=== PATIENT | female | born 1965 | race Caucasian/White ===

== ENCOUNTER 2016-12-20 14:14 | Emergency (ER) | payer BC ==
[~2016-12-20] VITALS: Ht 167.6 cm; Wt 121.0 kg
[~2016-12-20 14:14] MED LIST: ATEN100T PO; ATOR10TA65 PO; GLYB1TAB2 PO; LEVO500V2 PO
[2016-12-20 14:20] VITALS: Ht 167.6 cm; Wt 121.0 kg
[2016-12-20 14:53] VITALS: BP 130/75; PULSE 72; RESP 17
[2016-12-20] MEDS ORDERED: ATEN50TA PO (15:05)
[2016-12-20] MEDS ORDERED: LEVO75TA5 PO (15:05)
[2016-12-20] MEDS ORDERED: ATOR20TA38 PO (15:05)
[2016-12-20] MEDS ORDERED: VALS1TAB82 PO (15:06)
[2016-12-20] MEDS ORDERED: GLYB1TAB3 PO (15:12)
[2016-12-20] MEDS ORDERED: GLYBURIDE/METFORMIN PO (15:17)
[2016-12-20 15:34] LABS: BASOPHILS % 0.4 % (0.0-2.0); EOSINOPHILS # 0.1 10^3/ul (0.0-0.5); HEMATOCRIT 38.5 % (37.0-47.0); HEMOGLOBIN 12.2 g/dl (12.0-16.0); LYMPHOCYTES # 2.2 10^3/ul (0.8-2.9); LYMPHOCYTES % 21.2 % (15.0-51.0); MEAN CORPUSCULAR HEMOGLOBIN 24.8 pg (29.0-33.0); MEAN CORPUSCULAR HGB CONC 31.7 g/dl (32.0-37.0); MEAN CORPUSCULAR VOLUME 78.3 fl (82.0-101.0); MEAN PLATELET VOLUME 10.3 fl (7.4-10.4); MONOCYTE # 0.7 10^3/ul (0.3-0.9); MONOCYTES % 6.8 % (0.0-11.0); NEUTROPHILS % 70.3 % (39.0-77.0); PLATELET COUNT 368 10^3/UL (140-415); RED BLOOD COUNT 4.92 10^6/ul (4.20-5.40); RED CELL DISTRIBUTION WIDTH 15.6 % (11.5-14.5); WHITE BLOOD COUNT 10.4 10^3/ul (4.8-10.8)
--- NOTE | 2016-12-20 15:34 | RADRPT ---
PROCEDURE: XR Chest. CLINICAL INDICATION: Chest Pain. TECHNIQUE: Single frontal view of the chest was obtained. COMPARISON: Chest x-ray from 04/27/2013 FINDINGS: There is stable mild cardiomegaly with mild pulmonary vascular congestion. No definite focal infiltrates are identified. There is no significant pleural effusion or pneumothorax. IMPRESSION: Mild cardiomegaly with mild pulmonary vascular congestion. No definite focal infiltrates or effusions. RPTAT: EE Physician Patrice Date Time Electronically viewed and signed by John Garza Physician on 12/20/2016 15:33 RA/
[2016-12-20 15:53] LABS: ANION GAP 14 (8-16); BLOOD UREA NITROGEN 15 mg/dl (7-20); CALCIUM 9.8 mg/dl (8.4-10.2); CARBON DIOXIDE 28 mmol/L (21-31); CHLORIDE 101 mmol/L (97-110); CREATININE 0.72 mg/dl (0.44-1.00); GLUCOSE 221 mg/dl (70-220); POTASSIUM 4.1 mmol/L (3.5-5.1); SODIUM 139 mmol/L (135-144)
[2016-12-20 16:08] LABS: TROPONIN-I < 0.012 ng/ml (0.00-0.12)
--- NOTE | 2016-12-20 16:54 | ERD ---
ER Documentation Chief Complaint Date/Time DATE: 12/20/16 TIME: 16:53 Chief Complaint dizziness and palpitations; chest tightness; left arm pain x 3 days; HPI This is a 51-year-old female who presents to the emergency room for evaluation of dizziness and chest tightness. The patient also has a complaint of mild nausea. She states that her symptoms have been present for 3 days duration is been constant. Her dizziness and lightheadedness is worse with a rapid change in position she describes as a room spinning sensation. The patient came to the ER for evaluation of her symptoms. ROS All systems reviewed and are negative except as per history of present illness. Medications Home Meds Reported Medications [Glyburide/Metformin] No Conflict Check, 1 TAB PO BID TAKE 2.5-500MG BID 12/20/16 Valsartan-Hydrochlorothiazide (Valsartan-HCTZ) 320-25 Mg Tablet, 1 TAB PO DAILY , #30 TAB 12/20/16 Atorvastatin Calcium* (Atorvastatin Calcium*) 20 Mg Tablet, 20 MG PO QHS, #30 TAB 12/20/16 Levothyroxine Sodium* (Levothyroxine Sodium*) 75 Mcg Tablet, 75 MCG PO BEFORE BREAKFAST, #30 TAB 12/20/16 Atenolol* (Atenolol*) 50 Mg Tablet, 50 MG PO DAILY, #30 TAB 12/20/16 Discontinued Reported Medications Glyburide/Metformin HCl (Glucovance 5-500 mg Tablet) 1 Each Tablet, 1 EACH PO BID, TAB 12/20/16 Glyburide, Micro-Metformin Hcl (Glyburide-Metformin) 1 Tab Tablet, 1 TAB PO BID 04/25/13 Levothyroxine Sodium* (Levothyroxine* INJ) 500 Mcg Soln, 75 MCG PO DAILY 04/25/13 Atorvastatin Calcium (Atorvastatin Calcium) 10 Mg Tab, MG PO HS 04/25/13 Atenolol* (Atenolol*) 100 Mg Tablet, 100 MG PO DAILY 04/25/13 Allergies Allergies: Coded Allergies: No Known Allergy (Unverified , 12/20/16) PMhx/Soc History of Surgery: Yes (RIGHT HAND [id number], 2007) Anesthesia Reaction: No Hx Neurological Disorder: No Hx Respiratory Disorders: No Hx Cardiac Disorders: Yes (HYPERTENSION, CHOLESTEROL ) Hx Psychiatric Problems: No Hx Miscellaneous Medical Probl: Yes (DM) Hx Alcohol Use: Yes (BEER DAILY) Hx Substance Use: No Hx Tobacco Use: Yes Smoking Status: Current every day smoker Physical Exam Vitals Vital Signs Date Time Temp Pulse Resp B/P Pulse Ox O2 Delivery O2 Flow Rate FiO2 12/20/16 14:53 72 17 130/75 100 Room Air 12/20/16 14:20 98.0 76 18 154/65 98 Physical Exam INITIAL VITAL SIGNS: Reviewed by me GENERAL: The patient is well developed and appropriate for usual state of health in no apparent distress HEENT: Pupils equal, round, and reactive to light. EOMI. There is no scleral icterus. NECK: C-spine is soft and supple, there is no meningismus. There is no cervical lymphadenopathy. LUNGS: Clear to auscultation bilaterally. There are no rales, wheezes or rhonchi. HEART: Regular rate and rhythm, no murmurs, clicks, rubs or gallops. ABDOMEN: Soft, non-tender, non-distended. There are bowel sounds in all four quadrants. No rebound or guarding. EXTREMITIES: There is no peripheral cyanosis or edema. No focal swelling or erythema. NEUROLOGICAL: The patient moves all four extremities with 5/5 strength. Cranial nerves II - XII are intact. Normal gait. Alert and oriented SKIN: There is no apparent rash or petechiae. HEME/LYMPHATIC: There is no evidence of excessive bruising or lymphedema. PSYCHIATRIC: The patient does not appear anxious or depressed. Result Diagram: 12/20/16 1515 12/20/16 1515 Results 24 hrs Laboratory Tests Test 12/20/16 15:15 White Blood Count 10.410^3/ul Red Blood Count 4.9210^6/ul Hemoglobin 12.2g/dl Hematocrit 38.5% Mean Corpuscular Volume 78.3fl Mean Corpuscular Hemoglobin 24.8pg Mean Corpuscular Hemoglobin Concent 31.7g/dl Red Cell Distribution Width 15.6% Platelet Count 82364^3/UL Mean Platelet Volume 10.3fl Neutrophils % 70.3% Lymphocytes % 21.2% Monocytes % 6.8% Eosinophils % 1.0% Basophils % 0.4% Nucleated Red Blood Cells % 0.0/100WBC Neutrophils # (Manual) 7.310^3/ul Lymphocytes # 2.210^3/ul Monocytes # 0.710^3/ul Eosinophils # 0.110^3/ul Basophils # 0.010^3/ul Nucleated Red Blood Cells # 0.010^3/ul Sodium Level 139mmol/L Potassium Level 4.1mmol/L Chloride Level 101mmol/L Carbon Dioxide Level 28mmol/L Anion Gap 14 Blood Urea Nitrogen 15mg/dl Creatinine 0.72mg/dl Glucose Level 221mg/dl Calcium Level 9.8mg/dl Troponin I < 0.012ng/ml Procedures/MDM EKG: Rate/Rhythm: [Normal Sinus Rhythm] QRS, ST, T-waves: [No changes consistent w/ acute ischemia] Impression: [No evidence of ischemia or arrhythmia] Chest X-ray 1V Interpreted by me: Soft Tissue: No acute abnormalities Bones: No acute abnormalities Mediastinum/Cardiac Silhouette/Lungs: [No acute abnormalities] This 51-year-old female presents to the ER for evaluation of dizziness. The patient on a cardiac workup in the ER including an EKG was nonischemic, troponin negative, chest x-ray is clear. She was given meclizine in the ER. She is hemodynamically stable at this time will be discharged home with a prescription for meclizine for BPPV. She was also advised to follow with primary care physician as an outpatient for outpatient stress test. She did verbalize understanding. Departure Diagnosis: Primary Impression: Dizziness Additional Impression: Chest pain Condition: Stable PRCEIOUS MARTINEZ DO Dec 20, 2016 16:54
[2016-12-20] MEDS ORDERED: MECL12.574 PO (16:55)
[2016-12-20] MEDS ORDERED: MECLIZINE 12.5 MG TAB PO ONE (17:00)
== END 2016-12-20 17:35 | disposition home or self-care (01) ==
LOC: E/R 14:14
DX: R42 Dizziness and giddiness (principal); R07.9 Chest pain, unspecified; I10 Essential (primary) hypertension; E11.9 Type 2 diabetes mellitus without complications; F17.210 Nicotine dependence, cigarettes, uncomplicated; Z79.84 Long term (current) use of oral hypoglycemic drugs
CPT/HCPCS: 36415; 71010; 80048; 84484; 85025; 93005; Z7502; Z7610

== ENCOUNTER 2018-12-17 08:32 | Day surgery (SDC) | payer BC ==
[~2018-12-17] VITALS: Ht 165.1 cm; Wt 123.5 kg
[~2018-12-17 08:32] MED LIST changes: +AMLODIPINE PO; +ASPI-535 PO; -ATEN100T PO; +ATEN50TA PO; -ATOR10TA65 PO; +ATOR20TA38 PO; +GLIPIZIDE PO; -GLYB1TAB2 PO; +GLYBURIDE/METFORMIN PO; +HYDROCHLOROTHIAZIDE PO; -LEVO500V2 PO; +LEVO75TA5 PO; +LOSARTAN PO; +MECL12.574 PO; +METFORMIN PO; +VALS1TAB82 PO
[2018-12-17 09:22] VITALS: Ht 165.1 cm; Wt 123.5 kg
[2018-12-17] MEDS ORDERED: LIDOCAINE 2% (SDV) 5 ML INJ ONE (09:37)
[2018-12-17] MEDS ORDERED: MIDAZOLAM 1 MG/ML 2 ML INJ ONE (09:37)
[2018-12-17] MEDS ORDERED: PROPOFOL 20 ML ONE (09:37)
[2018-12-17] MEDS ORDERED: LIDOCAINE 4% SOLUTION 50 ML BTL ONE (09:38)
[2018-12-17] MEDS ORDERED: FENTAnyl 50 MCG/ML VIAL ONE (09:38)
[2018-12-17] MEDS ORDERED: ETOMIDATE 20 MG INJ ONE (09:38)
[2018-12-17 10:09] VITALS: BP 139/63; PULSE 62; RESP 13
[2018-12-17 10:57] VITALS: BP 128/63; PULSE 65; RESP 18
== END 2018-12-17 11:40 | disposition home or self-care (01) ==
LOC: GIL 08:32
PROVIDERS: ATTEND Internal Medicine Gastroenterology
DX: Z12.11 Encounter for screening for malignant neoplasm of colon (principal); K64.8 Other hemorrhoids; K31.9 Disease of stomach and duodenum, unspecified; D12.6 Benign neoplasm of colon, unspecified; K21.9 Gastro-esophageal reflux disease without esophagitis; E11.9 Type 2 diabetes mellitus without complications; E03.9 Hypothyroidism, unspecified; I10 Essential (primary) hypertension
CPT/HCPCS: 43239; 45380; 82962; 88305; 88312; J2250; J3010; Z7610